=== PATIENT | male | born 1990 | race African-American/Black ===

== ENCOUNTER 2018-06-03 18:56 | Emergency (ER) | payer SELFPAY ==
[~2018-06-03] VITALS: Ht 172.7 cm; Wt 77.5 kg
[2018-06-03] MEDS ORDERED: LORAZEPAM 2MG/ML CPJ IM PRN (21:15)
[2018-06-03] MEDS ORDERED: HALOPERIDOL LACTATE 5MG/ML VIAL IM ONE (21:15)
[2018-06-03] MEDS ORDERED: DIPHENHYDRAMINE 50MG/ML VIAL IM PRN (21:15)
[2018-06-03 22:59] LABS: BASOPHILS % 0.8 % (0.0-2.0); EOSINOPHILS % 3.5 % (0.0-5.0); HEMATOCRIT. 38.3 % (42.0-52.0); HEMOGLOBIN. 12.6 g/dL (14.0-18.0); LYMPHOCYTES % 42.3 % (20.0-50.0); MEAN PLATELET VOLUME 8.6 fl (7.4-10.4); MONOCYTES % 6.7 % (2.0-8.0); NEUTROPHILS % 46.7 % (40.0-76.0); PLATELET 307 x1000/uL (130-400); RED BLOOD CELL COUNT 4.21 mill/uL (4.7-6.1); RED CELL DISTRIBUTION WIDTH 13.1 % (11.6-14.6)
[2018-06-03 23:03] LABS: CHLORIDE 106 mEq/L (98-107)
[2018-06-03 23:04] LABS: CLARITY URINE CLEAR (CLEAR); COLOR URINE YELLOW (YELLOW); KETONES URINE TRACE (NEGATIVE); LEUKOCYTE ESTERASE URINE NEGATIVE (NEGATIVE); NITRITE URINE NEGATIVE (NEGATIVE); OCCULT BLOOD URINE NEGATIVE (NEGATIVE); PH URINE 6.5 (4.5-8.0); PROTEIN URINE 1+ (NEGATIVE); SPECIFIC GRAVITY URINE 1.016 (1.005-1.030); UROBILINOGEN URINE 0.2 E.U./dL (0.2-1.0)
[2018-06-03 23:10] LABS: ETHANOL BLOOD 204 mg/dL
[2018-06-03 23:14] LABS: *BARBITURATES SCREEN URINE NEGATIVE (NEGATIVE)
[2018-06-03 23:15] LABS: *AMPHETAMINES SCREEN URINE PRESUMTIVE POSITIVE (NEGATIVE); *BENZODIAZEPINES SCREEN URINE NEGATIVE (NEGATIVE); *COCAINE SCREEN URINE NEGATIVE (NEGATIVE); CANNABINOID URINE SCREEN PRESUMTIVE POSITIVE (NEGATIVE); METHADONE URINE SCREEN NEGATIVE (NEGATIVE); OPIATES URINE SCREEN NEGATIVE (NEGATIVE); PHENCYCLIDINE URINE SCREEN NEGATIVE (NEGATIVE)
[2018-06-04 06:30] VITALS: BP 110/65
== END 2018-06-04 09:46 | disposition home or self-care (01) ==
LOC: ER 18:56
DX: F19.10 Other psychoactive substance abuse, uncomplicated (principal); F10.10 Alcohol abuse, uncomplicated; Y90.7 Blood alcohol level of 200-239 mg/100 ml; F15.10 Other stimulant abuse, uncomplicated; F12.10 Cannabis abuse, uncomplicated; R45.1 Restlessness and agitation; R46.2 Strange and inexplicable behavior; F31.9 Bipolar disorder, unspecified; Z78.1 Physical restraint status; Z59.0 Homelessness
CPT/HCPCS: 36415; 80053; 80305; 80307; 80329; 81003; 85025; 93005; 96372; 99285; G0482; J1200; J1630; J2060; Z7610

== ENCOUNTER 2018-09-07 11:57 | Emergency (ER) | payer SELFPAY ==
[~2018-09-07] VITALS: Ht 172.7 cm; Wt 64.0 kg
[2018-09-07] MEDS ORDERED: MAGNESIUM/ALUMINUM HYDROXIDE/SIMETHICONE 30ML UDC PO STA (12:26)
[2018-09-07] MEDS ORDERED: DICYCLOMINE HCL 10MG CAPSULE PO ONE (12:30)
[2018-09-07] MEDS ORDERED: SODIUM CHLORIDE 0.9% 1,000 ML IV ONE (13:45)
[2018-09-07 14:59] LABS: BASOPHILS % 0.6 % (0.0-2.0); EOSINOPHILS % 0.6 % (0.0-5.0); HEMATOCRIT. 36.2 % (42.0-52.0); HEMOGLOBIN. 11.7 g/dL (14.0-18.0); LYMPHOCYTES % 18.7 % (20.0-50.0); MEAN CORPUSCULAR HEMOGLOBIN 29.5 pg (28.0-32.0); MEAN CORPUSCULAR VOLUME 91.4 fL (80.0-94.0); MEAN PLATELET VOLUME 8.2 fl (7.4-10.4); MONOCYTES % 7.6 % (2.0-8.0); NEUTROPHILS % 72.5 % (40.0-76.0); PLATELET 313 x1000/uL (130-400); RED BLOOD CELL COUNT 3.96 mill/uL (4.7-6.1); RED CELL DISTRIBUTION WIDTH 14.2 % (11.6-14.6)
[2018-09-07] MEDS ORDERED: KETOROLAC 15MG/ML VIAL IV ONE (15:00)
[2018-09-07 15:02] LABS: CHLORIDE 105 mEq/L (98-107)
[2018-09-07 16:23] VITALS: BP 106/76
== END 2018-09-07 16:24 | disposition home or self-care (01) ==
LOC: ER 11:57
DX: K85.90 Acute pancreatitis without necrosis or infection, unspecified (principal); F17.200 Nicotine dependence, unspecified, uncomplicated; F12.10 Cannabis abuse, uncomplicated
CPT/HCPCS: 36415; 71045; 74018; 80053; 83690; 85025; 96374; 99284; J1885; J7030

== ENCOUNTER 2019-09-13 08:38 | Emergency (ER) | payer MEDICAID ==
[~2019-09-13] VITALS: Ht 172.7 cm; Wt 69.0 kg
[2019-09-13] MEDS ORDERED: LIDOCAINE 5% PATCH TOP STA (10:57)
[2019-09-13 11:00] VITALS: BP 152/89
[2019-09-13] MEDS ORDERED: KETOROLAC 30MG/ML VIAL IM ONE (11:00)
== END 2019-09-13 13:07 | disposition home or self-care (01) ==
LOC: ER 08:38
DX: M25.512 Pain in left shoulder (principal); F12.10 Cannabis abuse, uncomplicated; F17.210 Nicotine dependence, cigarettes, uncomplicated; W18.39XA Other fall on same level, initial encounter; Y93.55 Activity, bike riding; Y92.89 Other specified places as the place of occurrence of the external cause; Y99.8 Other external cause status
CPT/HCPCS: 70486; 73030; 96372; 99284; 99406; J1885; A4565

== ENCOUNTER 2021-03-24 08:42 | Emergency (ER) | payer MEDICAID ==
[~2021-03-24] VITALS: Ht 172.7 cm; Wt 68.0 kg
[2021-03-24 08:46] VITALS: BP 121/72
== END 2021-03-24 09:30 | disposition left against medical advice (07) ==
LOC: ER 08:42
DX: G89.29 Other chronic pain (principal); M54.6 Pain in thoracic spine; F12.10 Cannabis abuse, uncomplicated; Z98.890 Other specified postprocedural states; Z90.49 Acquired absence of other specified parts of digestive tract
CPT/HCPCS: 99281

== ENCOUNTER 2023-04-28 14:39 | Emergency (ER) | payer MEDICAID ==
[~2023-04-28] VITALS: Ht 172.7 cm; Wt 72.0 kg
[2023-04-28 14:42] VITALS: PULSE 84
[2023-04-28 14:43] VITALS: BP 97/61; RESP 20; TEMP 98.5; O2SAT 99
[2023-04-28] MEDS ORDERED: CYCL10TA21 MT (23:27)
[2023-04-28] MEDS ORDERED: IBUP-2029 MT (23:27)
== END 2023-04-28 18:32 | disposition left against medical advice (07) ==
LOC: ER 14:39
DX: Z53.21 Procedure and treatment not carried out due to patient leaving prior to being seen by health care provider (principal)
CPT/HCPCS: 99281

== ENCOUNTER 2023-04-28 20:53 | Emergency (ER) | payer MEDICAID ==
[~2023-04-28] VITALS: Ht 172.7 cm; Wt 71.5 kg
[2023-04-28 20:58] VITALS: BP 103/59; PULSE 86; RESP 18; TEMP 98.2; O2SAT 99
[2023-04-28] MEDS ORDERED: KETOROLAC 60MG/2ML VIAL IM ONE (21:45)
[2023-04-28] MEDS ORDERED: LORAZEPAM 1MG TABLET PO ONE (21:45)
[2023-04-28] MEDS ORDERED: LORAZEPAM 2MG/ML CPJ IV ONE (23:00)
[2023-04-28] MEDS ORDERED: CYCL10TA21 MT (23:27)
[2023-04-28] MEDS ORDERED: IBUP-2029 MT (23:27)
== END 2023-04-29 00:08 | disposition home or self-care (01) ==
LOC: ER 21:03
DX: M25.512 Pain in left shoulder (principal); F12.10 Cannabis abuse, uncomplicated; Z90.49 Acquired absence of other specified parts of digestive tract
CPT/HCPCS: 99284; 96374; 96372; J1885; J2060